=== PATIENT | female | born 1965 | race Caucasian/White ===

== ENCOUNTER 2016-08-14 13:02 | Day surgery (SDC) | payer OTHER ==
[2016-08-14] VITALS (12 sets, daily range): BP systolic 119–175; BP diastolic 70–89; PULSE 45–66; RESP 16–35; Ht 162.6 cm; Wt 83.1 kg
[~2016-08-14] VITALS: Ht 162.6 cm; Wt 83.1 kg
[2016-08-14] MEDS ORDERED: LEVO100T82 PO (13:32)
[2016-08-14] MEDS ORDERED: HYD25 PO (13:33)
[2016-08-14] MEDS ORDERED: BUPIVACAINE 0.25% (MPF) 30 ML INJ ONE (14:30)
[2016-08-14] MEDS ORDERED: SOD CHLORIDE 0.9% 1,000 ML IV SCH (15:00)
[2016-08-14] MEDS ORDERED: CEFAZOLIN 2 GM/50 ML (PMX) 50 ML IVPB ONE (15:00)
[2016-08-14] MEDS ORDERED: CEFAZOLIN 1 GM INJ ONE (15:46)
[2016-08-14] MEDS ORDERED: PROPOFOL 40 ML ONE (15:46)
[2016-08-14] MEDS ORDERED: DEXAMETHASONE 4 MG/ML 1 ML INJ ONE (15:47)
[2016-08-14] MEDS ORDERED: KETOROLAC 30 MG INJ ONE (15:47)
[2016-08-14] MEDS ORDERED: ONDANSETRON 4 MG INJ ONE (15:47)
[2016-08-14] MEDS ORDERED: MIDAZOLAM 1 MG/ML 2 ML INJ ONE (15:47)
[2016-08-14] MEDS ORDERED: METOCLOPRAMIDE 10 MG INJ ONE (15:47)
[2016-08-14] MEDS ORDERED: FENTAnyl 50 MCG/ML VIAL ONE (15:47)
[2016-08-14] MEDS ORDERED: ROPIVACAINE 0.5 % 30 ML VIAL ONE (15:47)
[2016-08-14] MEDS ORDERED: LABETALOL HCL 20MG INJ ONE (15:54)
--- NOTE | 2016-08-14 15:57 | OPR ---
Date/Time of Note Date/Time of Note DATE: 08/14/16 TIME: 15:53 Operative Report Procedure Date: Aug 14, 2016 Preoperative Diagnosis symptomatic gallstones Postoperative Diagnosis same Operation Performed lap georgie therapeutic injection [place] cpt [id number] Surgeon: Ivania DEMPSEY Specimens gallbladder Procedure Description Patient is taken to the OR and prepped and draped in usual sterile fashion surgical time was performed IV antibiotics given and from local incision is made with a 15 blade dissection cautery was carried to the fascia. Fascia is incised with curved Mayos. 0 Vicryl U stitch was placed into the fascia. Balloon Tracy trocar is introduced. Pneumoperitoneum is established. Mid epigastric 12 mm optical and 5 mm right upper quadrant and 5 mm right upper flank trocars are placed under direct visualization. On initial inspection there is adhesions of the gallbladder which were taken down bluntly. The cystic duct is identified the critical view is established the cystic duct and cystic artery are divided using a 35 mm [place] vascular stapler. The gallbladder is taken of the gallbladder bed. The gallbladder is retrieved using an Endo Catch bag. The staple line is reinforced with clips. Ports removed under direct visualization skin was closed after 0 Vicryl U stitches tied down. Skin is closed using skin stefany. Local anesthesia is injected all incision incision sites dry dressings were applied. Ivania DEMPSEY Aug 14, 2016 15:57
[2016-08-14] MEDS ORDERED: HYDROCODONE/APAP (5/325) TAB PO ONE (16:00)
[2016-08-14] MEDS ORDERED: hydrALAzine 20 MG INJ IV PRN (16:00)
[2016-08-14] MEDS ORDERED: METOCLOPRAMIDE 10 MG INJ IV PRN (16:00)
[2016-08-14] MEDS ORDERED: LABETALOL HCL 20MG INJ IV PRN (16:00)
[2016-08-14] MEDS ORDERED: MEPERIDINE 25 MG INJ IV PRN (16:00)
[2016-08-14] MEDS ORDERED: HYDROmorphONE (0.2 MG/ML) 10ML SYG IV PRN ×2 (16:00)
[2016-08-14] MEDS ORDERED: EPHEDrine SULFATE 50 MG/5 ML SYG IV PRN (16:00)
[2016-08-14] MEDS ORDERED: DIPHENHYDRAMINE 50 MG INJ IV PRN (16:00)
[2016-08-14] MEDS ORDERED: ONDANSETRON 4 MG INJ IV PRN (16:00)
[2016-08-14] MEDS ORDERED: morphine (1 MG/ML) 10ML SYRINGE IV PRN ×3 (16:00)
[2016-08-14] MEDS: HYDROmorphONE (0.2 MG/ML) 10ML SYG IV PRN ×3 (16:14→16:42)
[2016-08-14] MEDS ORDERED: NEOSTIGMINE 3 MG/3 ML SYRINGE ONE (16:38)
[2016-08-14] MEDS ORDERED: GLYCOPYRROLATE 0.4 MG INJ ONE (16:38)
== END 2016-08-14 18:10 | disposition home or self-care (01) ==
LOC: SDS 13:02
PROVIDERS: ATTEND Surgery
DX: K81.1 Chronic cholecystitis (principal); I10 Essential (primary) hypertension; E03.9 Hypothyroidism, unspecified
CPT/HCPCS: 47562; 88304; J0360; J0690; J1100; J1170; J1885; J2250; J2405; J2710; J2765; J2795; J3010; Z7512; Z7610